=== PATIENT | male | born 1990 | race American Indian/Alaskan Native ===

== ENCOUNTER 2021-06-28 01:35 | Emergency (ER) | payer SELFPAY ==
[2021-06-28] MEDS ORDERED: LORazepam 2 MG/ML VIAL IM PRN (03:41)
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
[2021-06-28 06:17] LABS: Alanine Aminotransferase 11 units/L (7-56); Albumin 4.6 g/dL (3.9-5); BUN/Creatinine Ratio 16; Blood Urea Nitrogen 13 mg/dL (9-20); Calcium 10.1 mg/dL (8.4-10.2); Hemolysis Index 24
[2021-06-28 06:23] LABS: Basophils % (Auto) 0.7 % (0.0-1.8); Eosinophils # (Auto) 0.1 K/mm3 (0.0-0.4); Eosinophils % (Auto) 1.2 % (0.0-4.3); Hematocrit 43.9 % (35.5-45.6); Hemoglobin 13.9 gm/dl (11.8-15.2); Lymphocytes # (Auto) 1.2 K/mm3 (1.2-5.4); Lymphocytes % (Auto) 25.5 % (13.4-35.0); Mean Corpuscular HGB Conc 32 % (32-34); Mean Corpuscular Volume 90 fl (84-94); Monocytes # (Auto) 0.3 K/mm3 (0.0-0.8); Monocytes % (Auto) 6.3 % (0.0-7.3); Platelet Count 312 K/mm3 (140-440); Red Blood Count 4.89 M/mm3 (3.65-5.03); Red Cell Distribution Width 14.1 % (13.2-15.2)
[2021-06-28] MEDS: HALOPERIDOL LACTATE 5 MG/1 ML INJ IM PRN ×2 (10:45→19:45)
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
[2021-06-28] MEDS: risperiDONE 1 MG TAB PO SCH ×2 (12:04→21:53)
[2021-06-28] MEDS: DIVALPROEX DR 125 MG TAB PO SCH ×2 (12:04→21:53)
[2021-06-28] MEDS: DOXEPIN 25 MG CAP PO SCH (21:53)
[2021-06-29 08:46] LABS: Bilirubin,Urine NEG (Negative); Blood,Urine NEG (Negative); Color,Urine Yellow (Yellow); Mucus,Urine 3+ /HPF; Protein,Urine <15 mg/dL mg/dL (Negative); Sperm,Urine FEW /HPF (NP); WBC,Urine < 1.0 /HPF (0.0-6.0)
--- NOTE | 2021-06-29 10:28 | Progress Note ---
Subjective - Reason for Consult Consult date: 06/29/21 Reason for consult: manic - Chief Complaint Chief complaint: The patient was seen today. He is more calm today. He is still delusional. The patient says he doesn't take meds and he doesn't have a history of schizophrenia. He says his sister is making everything up on him. He says he's having a lot of friction at home. When I ask the patient how did he feel as far as his mental health was concerned, he replies "I really don't know how I feel." He denies SI/HI or hallucinations. REVIEW OF SYSTEMS Constitutional: Negative for weight loss ENT: Negative for stridor Respiratory: Negative for cough or hemoptysis All other systems reviewed and are negative MENTAL STATUS EXAMINATION General Appearance and Behavior: Age appropriate, good hygiene, wearing appropriate clothes. loud, manic Cooperation: Cooperative Psychomotor Behavior: Psychomotor normal Mood: upset Affect and affective range: congruent with stated mood Thought Process: illogical Thought Content: delusions, grandiose, hyper-hindu Speech: loud tone, increased pace, hyperverbal Suicidal Ideation: Denies Homicidal Ideation: Denies Hallucinations: Denies Delusions: Yes, grandiose Impulse Control: Limited Insight and Judgment: Poor insight and good judgment Memory: Limited Attention: distracted Orientation: a/o x 3 Assessment (1) Schizophrenia Treatment Plan 1013 Risperidone 1mg po BID Doxepin 25mg po qhs Depakote DR 125mg po BID Agree with Haldol and Lorazepam prn Medical: per primary Disposition: Recommend acute psychiatric inpatient treatment Will follow. thanks Case staffed with Dr. Redidng Mental Status Exam - Vital signs Last Vital Signs Temp 98.1 F 06/29/21 09:08 Pulse 86 06/29/21 09:08 Resp 16 06/29/21 09:08 BP 128/82 06/29/21 09:08 Pulse Ox 98 06/29/21 09:08
[2021-06-29] MEDS: risperiDONE 1 MG TAB PO SCH ×2 (11:04→22:26)
[2021-06-29] MEDS: DIVALPROEX DR 125 MG TAB PO SCH ×2 (11:04→22:25)
--- NOTE | 2021-06-29 11:33 | Event Note ---
Date: 06/29/21 Patient is still delusional. Vital signs stable. Labs reviewed and is unremarkable. Patient waiting for inpatient psychiatric admission.
[2021-06-29] MEDS ORDERED: LIP THERAPY VASELINE TP ONE (13:55)
[2021-06-29] MEDS: DOXEPIN 25 MG CAP PO SCH (22:26)
[2021-06-29 23:14] LABS: Amphetamine Screen,Urine Negative; Benzodiazepines Screen,Urine Negative; Cocaine Screen,Urine Negative; Methadone Screen,Urine Negative; Opiate Screen,Urine Negative
[2021-06-29 23:26] LABS: Cannabinoid Screen,Urine Positive
[2021-06-30] MEDS ORDERED: ACETAMINOPHEN 500 MG TAB PO ONE (04:01)
[2021-06-30] MEDS: DIVALPROEX DR 125 MG TAB PO SCH (10:34)
[2021-06-30] MEDS: risperiDONE 1 MG TAB PO SCH (10:34)
--- NOTE | 2021-06-30 10:38 | Progress Note ---
Subjective - Reason for Consult Consult date: 06/30/21 Reason for consult: psychosis - Chief Complaint Chief complaint: The patient was seen today. He is more calm today. He is still delusional. The patient states "I feel good." When asking him has he been taking his meds he says "only the seroquel, cause I need to sleep. I don't need the rest of them." The nursing staff states the patient has been refusing meds and states he can mix it with lotion and apply topically. Also notes that the patient was squatting attempting to remove bowel from himself. REVIEW OF SYSTEMS Constitutional: Negative for weight loss ENT: Negative for stridor Respiratory: Negative for cough or hemoptysis All other systems reviewed and are negative MENTAL STATUS EXAMINATION General Appearance and Behavior: Age appropriate, good hygiene, wearing appropriate clothes. loud, manic Cooperation: Cooperative Psychomotor Behavior: Psychomotor normal Mood: upset Affect and affective range: congruent with stated mood Thought Process: illogical Thought Content: delusions, grandiose, hyper-worship Speech: loud tone, increased pace, hyperverbal Suicidal Ideation: Denies Homicidal Ideation: Denies Hallucinations: Denies Delusions: Yes, grandiose Impulse Control: Limited Insight and Judgment: Poor insight and good judgment Memory: Limited Attention: distracted Orientation: a/o x 3 Assessment (1) Schizophrenia Treatment Plan 1013 Risperidone 1mg po TID Doxepin 25mg po qhs Increase Depakote DR 250mg po BID Agree with Haldol and Lorazepam prn Medical: per primary Disposition: Recommend acute psychiatric inpatient treatment Will follow. thanks Case staffed with Dr. Redding Mental Status Exam - Vital signs Last Vital Signs Temp 99 F 06/30/21 08:57 Pulse 96 H 06/30/21 08:57 Resp 16 06/30/21 08:57 BP 113/71 06/30/21 08:57 Pulse Ox 100 06/30/21 08:57
[2021-06-30] MEDS ORDERED: diphenhydrAMINE 50 MG/ML VIAL ONE (12:08)
[2021-06-30] MEDS ORDERED: diphenhydrAMINE 50 MG/ML VIAL IM PRN (12:46)
--- NOTE | 2021-06-30 12:48 | Event Note ---
Date: 06/30/21 S: Patient refusing studies and meds. O: Vital Signs - 8 hr 06/30/21 08:57 Temperature 99 F Pulse Rate 96 H Respiratory 16 Rate Blood Pressure 113/71 [Left] O2 Sat by Pulse 100 Oximetry A: Schizophrenia P: 1013/awaiting inpatient psych. As needed meds for agitation
[2021-06-30] MEDS ORDERED: risperiDONE 1 MG TAB PO SCH (14:00)
[2021-06-30 16:57] VITALS: BP 110/76
[2021-06-30] MEDS ORDERED: DIVALPROEX DR 250 MG TAB PO SCH (22:00)
== END 2021-06-30 16:38 ==
LOC: ED 01:35
DX: F20.9 Schizophrenia, unspecified (principal)
CPT/HCPCS: 36415; 80053; 80307; 81001; 84443; 85025; 96372; 99285; J1200; J1630; J2060; 80320; G0480